=== PATIENT | male | born 1955 | race Caucasian/White ===

== ENCOUNTER 2020-03-22 00:26 | Outpatient (CLI) | payer MEDICARE, OTHER, SELFPAY ==
[2020-03-22 17:08] LABS: SARS-CoV-2 RNA PCR Negative
== END 2020-03-22 00:27 | disposition home or self-care (01) ==
LOC: ANHCOVIDDT 00:26
PROVIDERS: PCP Nurse Practitioner Family; Visit Provider Podiatrist Foot & Ankle Surgery
DX: Z01.812 Encounter for preprocedural laboratory examination (principal); Z11.59 Encounter for screening for other viral diseases
CPT/HCPCS: 87635; C9803; U0003

== ENCOUNTER 2020-03-22 07:49 | Outpatient (CLI) | payer MEDICARE, OTHER, SELFPAY ==
--- NOTE | 2020-03-22 07:54 | ECG_ITS ---
Measurements Intervals Steen Rate: 85 P: 25 TX: 166 QRS: -17 QRSD: 110 T: 52 QT: 367 QTc: 438 Interpretive Statements SINUS RHYTHM WITH SINUS ARRHYTHMIA NORMAL ECG Electronically Signed On 03-22-2020 8:10:56 CDT by Juan Pablo Hedrick D.O.
[2020-03-22 08:31] LABS: Anion Gap 5 mmol/L (8-16); Blood Urea Nitrogen 22 mg/dL (9-20); Calcium 9.3 mg/dL (8.4-10.2); Carbon Dioxide 28 mmol/L (22-30); Chloride 105 mmol/L (98-107); Estimated Glomerular Filt Rate > 60; Glucose 141 mg/dL (75-110); Potassium 4.4 mmol/L (3.4-5.0); Sodium 138 mmol/L (137-145)
== END 2020-03-22 07:50 | disposition home or self-care (01) ==
LOC: ANHSURGERY 07:54
PROVIDERS: Anesthesiology; PCP Nurse Practitioner Family; Visit Provider Podiatrist Foot & Ankle Surgery
DX: Z01.818 Encounter for other preprocedural examination (principal); I10 Essential (primary) hypertension
CPT/HCPCS: 36415; 80048; 87635; 93005; C9803; U0003

== ENCOUNTER 2020-03-25 01:09 | Day surgery (SDC) | payer MEDICARE, OTHER, SELFPAY ==
[2020-03-15 15:40] VITALS: BMI 38.6
--- NOTE | 2020-03-25 10:39 | WPDANESEPPF ---
Anes - Initial Pre Proc Eval Procedure: Operation Date: 03/25/20 12:00 Proposed Procedures p Exostectomy Tarsal Left Foot - Manjinder Orantes DPM Date/Time: 03/25/20 10:39 Surgeon: Manjinder Orantes DPM Pre Op Diagnosis: Exostosis Left Foot Patient Data Age: 65 Gender: M Height: 6 ft Weight: 129.3 kg Allergies Allergy/AdvReac Type Severity Reaction Status Date / Time No Known Allergies Allergy Verified 03/25/20 10:38 Home Medications Medication Instructions Recorded Confirmed Type allopurinol 100 mg PO TID 03/15/20 03/15/20 History diclofenac sodium 50 mg PO BID 03/15/20 03/15/20 History lisinopril-hydrochlorothiazide 1 tablet PO QAM 03/15/20 03/15/20 History multivitamin,hy-vsrd-ytsbkxuj 1 tablet PO DAILY 03/15/20 03/15/20 History [Complete Multivitamin] paroxetine HCl 30 mg PO QAM 03/15/20 03/25/20 History Patient hx anesthesia problems: none Family hx anesthesia problems: none PMFSH Past Medical History Medical History (Updated 03/25/20 @ 10:40 by Archie Plata MD) Gout HTN (hypertension) with goal to be determined Obesity JESSE on CPAP Surgical History Surgical History (Updated 03/25/20 @ 10:40 by Archie Plata MD) History of total knee arthroplasty Social History Social History Smoking packs per day: 1.5 Smoking cigarettes per day: 30.0 Years smoked: 25 Smoking pack-years: 37.50 Smoking status: Former smoker Smoking end date: 07/05/03 Alcohol intake: current Drinks per week: 1 Alcohol use details: BEER Living arrangements: with family Spiritual care concerns: No Anes - Eval Final PreProcedure Day of Procedure 03/25/20 10:39 Patient weight: obese Heart: regular rate and rhythm Lungs: clear to auscultation Airway: Mallampati scale Neurological: alert and oriented Last oral intake: >/= 8 hours ASA classification: III Emergent: no Anesthetic plan: proceed Anesthesia type and monitoring: general GIVS and standard monitoring Informed Consent: The patient's anesthetic plan and its attendant risks and benefits were discussed with the patient/family/POA. Questions were solicited and answers provided to the satisfaction of the patient/family/POA.
[2020-03-25 10:40] VITALS: BP 126/77; PULSE 79; RESP 18; TEMP 36.9; O2SAT 98
[2020-03-25] MEDS: LACTATED RINGERS 1,000 ML 30 ML IV CONT (10:53)
--- NOTE | 2020-03-25 11:28 | PM.IMHP ---
H&P: HPI History of Present Illness Date/Time: 03/25/20 11:28 Chief complaint: Exostosis Left Foot Narrative: Lane Paige is a 65 year old male with a painful lump of bone on the top of his left foot. It has not responded to nonsurgical treatment. It causes pain with shoes and ambulation. He wishes to have it surgically excised. [facility] Past Medical History Medical History (Updated 03/25/20 @ 11:31 by Manjinder Orantes DPM) Gout HTN (hypertension) with goal to be determined Obesity JESSE on CPAP Surgical History Surgical History (Updated 03/25/20 @ 10:40 by Archie Plata MD) History of total knee arthroplasty Social History Social History Smoking packs per day: 1.5 Smoking cigarettes per day: 30.0 Years smoked: 25 Smoking pack-years: 37.50 Smoking status: Former smoker Smoking end date: 07/05/03 Alcohol intake: current Drinks per week: 1 Alcohol use details: BEER Living arrangements: with family Spiritual care concerns: No Meds Home Medications and Allergies Home Medications Medication Instructions Recorded Confirmed Type allopurinol 100 mg PO TID 03/15/20 03/15/20 History diclofenac sodium 50 mg PO BID 03/15/20 03/15/20 History lisinopril-hydrochlorothiazide 1 tablet PO QAM 03/15/20 03/15/20 History multivitamin,th-widr-gkiwjzmk 1 tablet PO DAILY 03/15/20 03/15/20 History [Complete Multivitamin] paroxetine HCl 30 mg PO QAM 03/15/20 03/25/20 History Allergies Allergy/AdvReac Type Severity Reaction Status Date / Time No Known Allergies Allergy Verified 03/25/20 10:38 Vital Signs Vital Signs - 24 hr 03/25/20 10:40 Temperature 36.9 C Pulse Rate 79 Respiratory Rate 18 Blood Pressure 126/77 Pulse Oximetry 98 Exam Const: General: cooperative, healthy appearing, comfortable, no acute distress, well developed, alert, awake and Physically active Orientation/consciousness: oriented to person, oriented to place and oriented to time Cardio: Peripheral pulses: Peripheral pulses 2+ throughout and dorsalis pedis present bilateral Skin: General skin exam: normal color Lesions: no lesions Rashes: no rashes Trauma: no lacerations or abrasions Wounds: no wounds Hair: normal Neuro: General: gait normal Speech: normal speech Motor exam (neuro): 5/5 motor strength present throughout and Normal motor muscle tone present throughout Sensory Exam: normal sensation Extrem: Left lower extremity: foot (Painful hypertrophic bone to the dorsal aspect of the tarsal joints. ) Assessment and Plan Assessment and plan (1) Osteophyte, left foot: Code(s): M25.775 - Osteophyte, left foot Status: Acute Assessment and Plan: Excision of dorsal exostosis of left foot.
--- NOTE | 2020-03-25 11:32 | WPDHPUPDATE1 ---
History and Physical Update Update Date/Time: 03/25/20 11:32 History and Physical has been reviewed, including an updated exam of the patient. There are NO changes in the patient's condition. Risks, benefits, and alternatives have been discussed and questions answered. Patient agrees to proceed with procedure. Proposed procedure: Exostectomy of the left foot.
[2020-03-25] MEDS: ceFAZolin 3 GM/D5W 100 ML 100 ML IVPB (12:04)
[2020-03-25] MEDS: POVIDONE-IODINE 10% OINT 30 GM TUBE 1 APPLIC TOPICAL (12:37)
[2020-03-25] MEDS: KETOROLAC 30 MG/ML VIAL (*BKC) IV PUSH (12:38)
[2020-03-25 12:48] VITALS: BP 130/77; PULSE 80; RESP 12; O2SAT 97
[2020-03-25 13:20] VITALS: BP 153/88; PULSE 75; RESP 16
[2020-03-25 13:45] VITALS: BP 147/83; PULSE 74; RESP 16
--- NOTE | 2020-03-26 05:31 | OP_ITS ---
DATE OF PROCEDURE: 03/25/2020 PREOPERATIVE DIAGNOSIS: Dorsal exostosis of left rear foot. POSTOPERATIVE DIAGNOSIS: Dorsal exostosis of left rear foot. PROCEDURE: Exostectomy of left rear foot. PATHOLOGY: None. ANESTHESIA: IV sedation with local. HEMOSTASIS: Pneumatic ankle tourniquet at 250 mmHg, left lower extremity. ESTIMATED BLOOD LOSS: Minimal under 5 cc. MATERIALS: 3.0 Vicryl, 4-0 nylon. INJECTABLES: 30 cc of a 1:1 mixture of 0.5% Marcaine plain and 1% lidocaine plain. COMPLICATIONS: None. INDICATION FOR PROCEDURE: Painful bony prominence on the dorsal aspect of the left foot. PROCEDURE IN DETAIL: The patient was brought to the operating room, placed on the operating table in the supine position. A Well-padded pneumatic ankle tourniquet was then placed above the patient's left ankle. Following IV sedation, local anesthesia was achieved by means of an ankle block consisting of 30 cc of a 1:1 mixture of 0.5% Marcaine plain and 1% lidocaine plain. The foot was then scrubbed, prepped and draped in the usual aseptic manner. An Esmarch bandage was used to exsanguinate the left foot, and the pneumatic ankle tourniquet was then inflated. Attention was then directed to the dorsal aspect of the tarsal joints, where a 4 cm dorsal linear incision was made. Incision was deepened utilizing sharp and blunt dissection with great care taken to protect and retract all vital and neurovascular structures. All bleeders were ligated and cauterized as necessary. Dissection was then carried down to level of the cuneiform joints. Blunt dissection was then carried down to level of the periosteum. There was noted to be hypertrophic bone formation present. The periosteal incision was made and the periosteal and capsular structures were reflected thus exposing the hypertrophic bone. Next utilizing a combination of power saw and handheld rasp, the hypertrophic eminence was resected and filed smooth. It was then flushed with copious amounts of sterile normal saline. Deep structures were coapted and reapproximated utilizing 3-0 Vicryl. The skin was coapted and reapproximated utilizing 4-0 nylon. The surgical site was then dressed with Betadine ointment, adaptic, gauze, Ana, and Coban. The pneumatic ankle tourniquet was deflated and a prompt capillary refill response was noted to all digits of the left lower extremity. The patient tolerated the above procedure and anesthesia well. The patient was transported to the recovery room with vital signs stable and vascular status intact. Following a period of postoperative monitoring, the patient will be discharged home with following written and oral instructions: The patient was instructed to decrease activity, to ice and elevate the left foot when at rest, and to keep the dressing clean and dry. He was dispensed a surgical shoe and advised to wear this at all times when bearing weight. He was given a prescription for postoperative pain management consisting of hydrocodone/acetaminophen 5/325 mg 1 to 2 tablets taken every 4 to 6 hours as needed for pain, #40. He has a followup appointment in 1 week's time or sooner if problems arise. Nik I MT: Anny
== END 2020-03-25 13:50 | disposition home or self-care (01) ==
PROVIDERS: PCP Nurse Practitioner Family; Visit Provider Podiatrist Foot & Ankle Surgery
PROC: (CPT 28104; principal; 2020-03-25 12:00)
DX: M25.775 Osteophyte, left foot (principal); I10 Essential (primary) hypertension; G47.33 Obstructive sleep apnea (adult) (pediatric); M10.9 Gout, unspecified; Z87.891 Personal history of nicotine dependence; E66.9 Obesity, unspecified; Z68.39 Body mass index [BMI] 39.0-39.9, adult
CPT/HCPCS: 28104; A9270; J0690; J1100; J1885; J2001; J2250; J2405; J2704; J3010; J7120